=== PATIENT | female | born 1940 | race Caucasian/White ===

== ENCOUNTER 2017-10-25 08:37 | Emergency (ER) | payer MEDICARE, BC ==
[~2017-10-25] VITALS: Ht 170.2 cm; Wt 95.0 kg
[~2017-10-25 08:37] MED LIST: AMOXICILLIN500 MG PO; APRESOLINE50 MG PO; ASPIRIN EC81 MG PO; ASPIRIN LOW DOS81 M2 PO; ATIVAN0.5 MG IV; AUGMENTIN875TAB OR; AZELASTINE HCL0.1 %; C 250 PO; CHERATUSSIN OR; CIPROFLOXACN500 MG PO; COUMADIN2.5 MG PO; EQL VITAMIN B500 MCG PO; FISH OIL1000 MG PO; FLUTICASONE50 MCG; FOLIC ACID1 MG PO; FUROSEMIDE40 MG PO; GABAPENTIN600 MG PO; HYDRALAZINE25 MG PO; HYDROCHLOROT12.5 MG PO; LANTUS100 MG/ML SC; LEVOTHYROXIN125 MC1 PO; LEVOTHYROXIN150 MCG PO; LISINOPRIL20 M1 OR; LISINOPRIL40 MG PO; LOSARTAN POT50 MG PO; LOSARTAN POTAS100 MG PO; LUTEIN20 MG PO; METOPROL TAR25 M1; METOPROL TAR25 MG PO; NOVOLOG FL100 UNIT/M; OCUVITE ADULT FORMUL; OMEPRAZOLE20 M1 PO; OMEPRAZOLE20 MG PO; POTASSIUM CHLO20 MEQ PO; PROAIR HFA IN; ROBITUSSIN AC10 ML PO; SIMVASTATIN10 MG PO; TOPROL XL200 M1 PO; WAL-ZYR10 MG PO; WARFARIN5 MG; ZITHROMAX250 MG PO; ZYRTEC10 MG PO; [UNRECOGNIZED DRUG - OTHER]
[2017-10-25] MEDS ORDERED: B COMPLE2 PO (09:06)
[2017-10-25] MEDS ORDERED: MELATONIN10 MG PO (09:12)
[2017-10-25] MEDS ORDERED: AMLODIPINE5 MG PO (09:12)
[2017-10-25] MEDS ORDERED: NITROFURANTOIN100 MG PO (09:16)
[2017-10-25 09:35] LABS: IMMATURE GRANULOCYTES 0.9 % (0.0-1.0); MEAN CELL VOLUME 85.2 fL CALC (80.0-100.0); MEAN CORPUSCULAR HGB 27.6 pG CALC (26.0-32.0); MEAN CORPUSCULAR HGB CONC 32.4 g/L CALC (32.0-36.0); NEUT# 4.98 thou/uL (2.00-7.15); RED BLOOD COUNT 2.9 mill/uL (4.20-5.60); RED CELL DISTRI WIDTH 14.7 % (11.5-15.5)
[2017-10-25 09:46] LABS: HEMATOCRIT 24.7 % (37.0-47.0)
[2017-10-25 09:47] LABS: ALKALINE PHOSPHATASE 83 u/l (38-126); ANION GAP 22 (6-22 (CALC)); BILIRUBIN, TOTAL 0.6 mg/dL (0.0-1.4); BUN 17 mg/dL (8-23); BUN/CREATININE RATIO 20 (12-20 (CALC)); CARBON DIOXIDE 19 mmol/l (22-30); CHLORIDE 93 mmol/l (95-108); CREATININE 0.8 mg/dL (0.5-1.0); GFR > 60 ML/MIN (>=60 (CALC)); GFR FOR AFR.AMER. > 60 ML/MIN (>=60 (CALC)); POTASSIUM 4.7 mmol/l (3.5-5.1); SGOT/AST 22 u/l (9-36); SGPT/ALT 34 u/l (11-66); SODIUM 129 mmol/l (137-146); TOTAL PROTEIN 6.9 g/dL (6.3-8.2)
[2017-10-25 09:48] LABS: ALBUMIN 3.3 g/dL (3.2-5.0)
[2017-10-25 10:01] LABS: MYOGLOBIN 46 ng/mL (0 - 62)
[2017-10-25 10:13] LABS: PROTHROMBIN TIME 148.4 SECONDS (9.0-12.5)
[2017-10-25 11:34] LABS: URINE BILIRUBIN - DIPSTICK NEGATIVE (NEGATIVE); URINE BLOOD DIPSTICK NEGATIVE (NEGATIVE); URINE CLARITY CLEAR; URINE COLOR YELLOW; URINE GLUCOSE - DIPSTICK NEGATIVE (NEGATIVE); URINE KETONE NEGATIVE (NEGATIVE); URINE LEUK ESTERASE NEGATIVE (NEGATIVE); URINE NITRITE - DIPSTICK NEGATIVE (Negative); URINE PROTEIN - DIPSTICK NEGATIVE (NEG-TRACE); URINE UROBILINOGEN - DIPSTICK 0.2 E.U./dL (0.2)
[2017-10-25 11:40] VITALS: BP 174/72
[2017-10-25 11:57] VITALS: BP 162/72
[2017-10-25 12:45] VITALS: BP 162/72
== END 2017-10-25 12:46 | disposition short-term general hospital (02) ==
LOC: ED 08:37
PROVIDERS: Family Medicine
PROC: 30233K1 Transfusion of Nonautologous Frozen Plasma into Peripheral Vein, Percutaneous Approach (ICD-10-PCS; principal; 2017-10-25)
PROC: 30233K1 Transfusion of Nonautologous Frozen Plasma into Peripheral Vein, Percutaneous Approach (ICD-10-PCS; 2017-10-25)
DX: D68.9 Coagulation defect, unspecified (principal); K92.2 Gastrointestinal hemorrhage, unspecified; D50.0 Iron deficiency anemia secondary to blood loss (chronic); I48.91 Unspecified atrial fibrillation; R22.0 Localized swelling, mass and lump, head; R06.02 Shortness of breath; R00.2 Palpitations; I10 Essential (primary) hypertension; Z79.01 Long term (current) use of anticoagulants; E11.9 Type 2 diabetes mellitus without complications; Z79.4 Long term (current) use of insulin; R00.0 Tachycardia, unspecified